=== PATIENT | female | born 1945 | race Caucasian/White ===

== ENCOUNTER → 2017-03-28 | Outpatient (REF) | payer MEDICARE | LOC: M LAB REF 09:02 | PROVIDERS: ATTEND Physician Assistant Medical | DX: L03.115 Cellulitis of right lower limb (principal) ==

== ENCOUNTER 2020-06-30 11:02 | Emergency (ER) | payer MEDICARE ==
[~2020-06-30] VITALS: Ht 152.4 cm; Wt 72.7 kg
[2020-06-30] MEDS ORDERED: LEVO88TA3 (11:16)
[2020-06-30] MEDS ORDERED: ATOR1TAB21 (11:16)
[2020-06-30] MEDS ORDERED: MONT10TA4 (11:16)
[2020-06-30] MEDS ORDERED: PROP10TA56 (11:16)
[2020-06-30] MEDS ORDERED: TRAM50TA2 (11:16)
[2020-06-30] MEDS ORDERED: ALEN70TA74 (11:16)
[2020-06-30] MEDS ORDERED: HYDR25TAB (11:16)
[2020-06-30 13:05] VITALS: BP 133/63
[2020-06-30] MEDS ORDERED: BOOSTRIX/ADACEL VACCINE (DIPHTH/PERTUSS/ACELL/TETANUS) 0.5ML SYR IM ONE (13:15)
--- NOTE | 2020-07-28 11:43 | REP ---
CT OF THE BRAIN: HISTORY: Head injury. TECHNIQUE: CT brain performed in the axial plane. Coronal reconstruction images are performed. FINDINGS: There is mild atrophy. There is no midline shift or mass effect. Mild periventricular small vessel ischemic changes are noted, presumably chronic in nature. There is no acute intracranial hemorrhage or extra-axial fluid collection. There is no skull fracture. The visualized paranasal sinuses are clear. IMPRESSION: No evidence of acute intracranial hemorrhage or skull fracture. MTDD
== END 2020-06-30 13:17 | disposition home or self-care (01) ==
LOC: M ED 11:02
DX: S00.83XA Contusion of other part of head, initial encounter (principal); S80.219A Abrasion, unspecified knee, initial encounter; R04.0 Epistaxis; W01.10XA Fall on same level from slipping, tripping and stumbling with subsequent striking against unspecified object, initial encounter; Y92.510 Bank as the place of occurrence of the external cause; Y93.9 Activity, unspecified; Y99.9 Unspecified external cause status; E78.5 Hyperlipidemia, unspecified; Z79.899 Other long term (current) drug therapy; Z88.5 Allergy status to narcotic agent

== ENCOUNTER → 2020-07-29 | Outpatient (REF) | payer MEDICARE ==
[~2020-07-29] MED LIST: ALEN70TA74; ATOR1TAB21; HYDR25TAB; LEVO88TA3; MONT10TA4; PROP10TA56; TRAM50TA2
== END ==
LOC: M LAB REF 15:01
PROVIDERS: ATTEND Dermatology
DX: C44.719 Basal cell carcinoma of skin of left lower limb, including hip (principal)
CPT/HCPCS: 11102; 88305; G0463

== ENCOUNTER → 2020-11-17 | Outpatient (REF) | payer MEDICARE ==
[~2020-11-17] MED LIST changes: -ALEN70TA74; +ALEN70TA82; +HYDR-3490; -HYDR25TAB; +MONT10TA10; -MONT10TA4
[2020-11-17 14:01] LABS: CALCIUM LEVEL 10.3 MG/DL (8.8-10.2); CREATININE FOR GFR 1.12 MG/DL (0.55-1.30); GLOMERULAR FILTRATION RATE 50.8 (>39); POTASSIUM SERUM 4.6 MEQ/L (3.5-5.1); THYROID STIMULATING HORMONE 0.119 uIU/ML (0.358-3.740)
[2020-11-17 15:44] LABS: HEMOGLOBIN A1c 6.1 %
== END ==
LOC: M LABDRWAD 12:37
PROVIDERS: ATTEND Internal Medicine
DX: R60.0 Localized edema (principal); E03.9 Hypothyroidism, unspecified; R73.03 Prediabetes

== ENCOUNTER → 2020-11-24 | Outpatient (REF) | payer MEDICARE ==
[2020-11-24 14:06] LABS: CREATININE FOR GFR 1.07 MG/DL (0.55-1.30); GLOMERULAR FILTRATION RATE 53.4 (>39); POTASSIUM SERUM 4.2 MEQ/L (3.5-5.1)
== END ==
LOC: M LABDRWAD 12:52
PROVIDERS: ATTEND Internal Medicine
DX: I10 Essential (primary) hypertension (principal)

== ENCOUNTER → 2021-01-13 | Outpatient (REF) | payer MEDICARE ==
[2021-01-13 14:00] LABS: CALCIUM LEVEL 10.4 MG/DL (8.8-10.2); CREATININE FOR GFR 1.07 MG/DL (0.55-1.30); GLOMERULAR FILTRATION RATE 53.4 (>39); POTASSIUM SERUM 4.2 MEQ/L (3.5-5.1)
== END ==
LOC: M LAB REF 12:27
PROVIDERS: ATTEND Internal Medicine
DX: E87.6 Hypokalemia (principal); I10 Essential (primary) hypertension

== ENCOUNTER → 2022-03-01 | Outpatient (CLI) | payer MEDICARE ==
[~2022-03-01] MED LIST changes: -MONT10TA10; +MONT10TA97
== END ==
LOC: M WHC 11:19
PROVIDERS: ATTEND Internal Medicine
DX: Z12.31 Encounter for screening mammogram for malignant neoplasm of breast (principal); Z80.3 Family history of malignant neoplasm of breast

== ENCOUNTER → 2022-04-27 | Outpatient (CLI) | payer MEDICARE | LOC: M WUC 13:35 | PROVIDERS: ATTEND Registered Nurse | DX: R07.81 Pleurodynia (principal); J98.11 Atelectasis ==

== ENCOUNTER → 2022-06-22 | Outpatient (CLI) | payer MEDICARE ==
[~2022-06-22] MED LIST changes: +GASTROGRAFIN SOLUTION 30ML (Q9963) As Ordered ONE; +ISOVUE-370 76% 100ML VIAL As Ordered ONE
== END ==
LOC: M RAD 08:37
PROVIDERS: ATTEND Internal Medicine
DX: K76.0 Fatty (change of) liver, not elsewhere classified (principal); N20.0 Calculus of kidney; K44.9 Diaphragmatic hernia without obstruction or gangrene; M51.36 Other intervertebral disc degeneration, lumbar region; I70.0 Atherosclerosis of aorta; I25.10 Atherosclerotic heart disease of native coronary artery without angina pectoris; D73.89 Other diseases of spleen
CPT/HCPCS: 74170; Q9963; Q9967

== ENCOUNTER → 2023-03-10 | Outpatient (CLI) | payer MEDICARE ==
[~2023-03-10] MED LIST changes: -GASTROGRAFIN SOLUTION 30ML (Q9963) As Ordered ONE; -ISOVUE-370 76% 100ML VIAL As Ordered ONE
== END ==
LOC: M WHC 12:18
PROVIDERS: ATTEND Internal Medicine
DX: Z12.31 Encounter for screening mammogram for malignant neoplasm of breast (principal); M85.88 Other specified disorders of bone density and structure, other site; M85.851 Other specified disorders of bone density and structure, right thigh; M85.852 Other specified disorders of bone density and structure, left thigh

== ENCOUNTER → 2023-04-12 | Outpatient (REF) | payer MEDICARE | LOC: M SFHCDERM 17:27 | PROVIDERS: ATTEND Physician Assistant | DX: L91.8 Other hypertrophic disorders of the skin (principal) ==

== ENCOUNTER → 2023-07-05 | Outpatient (CLI) | payer MEDICARE ==
[~2023-07-05] MED LIST changes: -ATOR1TAB21; +ATOR1TAB21 PO; +CIDA500T2 PO; +FAMO40TA3 PO; +GNPTAB37 PO; +LEVO88TA24 PO; -MONT10TA97; +MONT10TA97 PO; -PROP10TA56; +PROP10TA56 PO; +THERTAB52 PO; +TRIA37.5 PO
== END ==
LOC: M WUC 11:21
PROVIDERS: ATTEND Nurse Practitioner Family
DX: M25.532 Pain in left wrist (principal)

== ENCOUNTER 2023-08-03 08:01 | Day surgery (SDC) | payer MEDICARE ==
[~2023-08-03] VITALS: Ht 152.4 cm; Wt 70.3 kg
[~2023-08-03 08:01] MED LIST changes: +CHEL50TA3 PO; +NS 1,000 ML IV ONE; +PEPC1TAB5 PO; +VITA200012 PO
[2023-08-03] MEDS ORDERED: LIDOCAINE 2% 100MG/5ML SDV (FOR ANES.) As Ordered ONE (08:15)
[2023-08-03] MEDS ORDERED: propofoL 200 MG/20 ML VIAL As Ordered ONE (08:15)
[2023-08-03 09:14] VITALS: TEMP 97.2
[2023-08-03 09:35] VITALS: BP 141/67; O2SAT 97
== END 2023-08-03 09:40 | disposition home or self-care (01) ==
LOC: M OPP 08:01
PROVIDERS: ATTEND Surgery
DX: Z86.010 Personal history of colon polyps (principal); D12.6 Benign neoplasm of colon, unspecified; K57.30 Diverticulosis of large intestine without perforation or abscess without bleeding; Z79.02 Long term (current) use of antithrombotics/antiplatelets; Z79.890 Hormone replacement therapy; Z79.899 Other long term (current) drug therapy; Z88.5 Allergy status to narcotic agent

== ENCOUNTER → 2024-01-23 | Outpatient (REF) | payer MEDICARE ==
[~2024-01-23] MED LIST changes: -NS 1,000 ML IV ONE
== END ==
LOC: M SFHCDERM 17:42
PROVIDERS: ATTEND Physician Assistant
DX: C44.222 Squamous cell carcinoma of skin of right ear and external auricular canal (principal)

== ENCOUNTER → 2024-03-18 | Outpatient (CLI) | payer MEDICARE | LOC: M WHC 09:12 | PROVIDERS: ATTEND Internal Medicine | DX: Z12.31 Encounter for screening mammogram for malignant neoplasm of breast (principal) ==

== ENCOUNTER → 2025-05-22 | Outpatient (CLI) | payer MEDICARE | LOC: M WHC 13:13 | PROVIDERS: ATTEND Internal Medicine | DX: Z12.31 Encounter for screening mammogram for malignant neoplasm of breast (principal); R92.323 Mammographic fibroglandular density, bilateral breasts ==